=== PATIENT | female | born 1960 | race Caucasian/White ===

== ENCOUNTER → 2017-10-11 | Outpatient (CLI) | payer MEDICARE, OTHER ==
--- NOTE | 2017-10-14 20:14 | MR ---
EXAMINATION TYPE: MR cspine/lspine wo con DATE OF EXAM: 10/11/2017 COMPARISON: 08/13/2015 HISTORY: Neck pain, headaches, BUE radic, LBP, RLE radic TECHNIQUE: Multiplanar, multisequence imaging of the lumbar spine is performed without IV contrast. FINDINGS: CERVICAL SPINE: The cervical spine vertebral bodies maintain normal vertebral body height and alignment. Cervical cor d is of normal signal. Prevertebral soft tissues demonstrate normal thickness. Degenerative endplate changes are seen, bone marrow signal is within normal limits. Visualized portions of the posterior fo ssa are grossly unremarkable. Mild mucosal thickening is seen of the maxillary sinuses incidentally. C2-C3: No significant disc disease, neural foraminal stenosis or spinal canal stenosis. C3-C4: New small posterior disc osteophyte complex is seen. Uncovertebral hypertrophy and left facet arthropathy creating mild left neural foraminal narrowing. Right neural foramen is patent. C4-C5: There is progression of degenerative disc disease at this level with new central small disc he rniation superimposed upon a broad-based disc bulge, uncovertebral hypertrophy and facet arthropathy. This results in mild spinal canal stenosis, moderate left neural foraminal narrowing and mild right neural foraminal narrowing. C5-C6: There is a similar appearing large broad-based disc bulge and disc osteophyte complex in [facility] with uncovertebral hypertrophy and facet arthropathy creating moderate spinal canal stenosis, severe left neural foraminal narrowing and moderate right neural foraminal narrowing. C6-C7: There is a similar posterior central disc herniation without progression from the prior. This creates moderate spinal canal stenosis. Uncovertebral hypertrophy and facet arthropathy creating mild left neural foraminal narrowing. Right neural foramen is patent. C7-T1: Broad-based posterior disc bulge causes minimal anterior mass effect on the thecal sac. IMPRESSION: 1. Similar appearing central disc herniation at C6-C7 in comparison to the prior exam creating modera te spinal canal stenosis. Degenerative changes resulting mild left neural foraminal narrowing at this level. No progression from the prior at this level. 2. New small central disc herniation at C4-C5 superimposed upon degenerative changes resulting in mil d spinal canal stenosis, moderate left neural foraminal narrowing and mild right neural foraminal kiko rowing. 3. Overall progression in degenerative disc disease in comparison to the prior multiple other levels creating variable degrees of neural foraminal stenosis as described above. 4. No new vertebral body height loss or malalignment of the cervical spine. 5. Incidental note of bilateral mild maxillary paranasal sinus disease. LUMBAR SPINE: Again there are 5 lumbar type vertebral bodies. Vertebral body height of the lumbar spine and alignme nt are maintained. Conus medullaris is unremarkable terminating at L1-L2. Multilevel disc desiccation is again noted. T12-L1: Intervertebral disc desiccation is seen with a small broad-based disc bulge. No resultant julianne ral foraminal narrowing the spinal canal stenosis. L1-L2: Mild disc desiccation is noted. No focal disc herniation or significant disc bulge is evident. No spinal canal stenosis or neural foraminal stenosis is present. Minimal with ligamentum flavum buc emmanuel is seen. L2-L3: Mild disc desiccation is present. No focal disc herniation or significant disc bulge is eviden t. No spinal canal stenosis or neural foraminal stenosis is present. Minimal facet arthropathy is see n. L3-L4: Broad-based left eccentric disc bulge creates mild left neural foraminal narrowing. Right neur al foramen and spinal canal remain patent. No focal herniation. Mild facet arthropathy and ligamentum flavum buckling.. L4-L5: New small right paracentral disc herniation superimposed upon a broad-based disc bulge is note d. Mild neural foraminal narrowing are seen as a result of this disc bulge, facet arthropathy and mil d ligament of flavum buckling. L5-S1: Ligamentum flavum buckling and a broad-based disc bulge are seen. No spinal canal stenosis or neural foraminal narrowing. IMPRESSION: 1. New small right paracentral disc herniation at L4-L5 superimposed upon a broad-based disc bulge re sulting in mild bilateral neural foraminal narrowing without spinal canal stenosis. 2. Mild progression in degenerative disc disease of the lumbar spine resulting in mild left neural fo raminal narrowing at L3-L4. 3. No spinal canal stenosis, fracture or malalignment of the lumbar spine.
== END | disposition home or self-care (01) ==
LOC: RADMRIMAIN 17:45
PROVIDERS: ATTEND Psychiatry & Neurology Neurology
DX: M99.73 Connective tissue and disc stenosis of intervertebral foramina of lumbar region (principal); M51.26 Other intervertebral disc displacement, lumbar region; M51.36 Other intervertebral disc degeneration, lumbar region; M48.02 Spinal stenosis, cervical region; M99.71 Connective tissue and disc stenosis of intervertebral foramina of cervical region; M50.221 Other cervical disc displacement at C4-C5 level; M50.321 Other cervical disc degeneration at C4-C5 level; M47.812 Spondylosis without myelopathy or radiculopathy, cervical region
CPT/HCPCS: 72141; 72148

== ENCOUNTER → 2018-06-30 | Outpatient (CLI) | payer MEDICARE, OTHER ==
--- NOTE | 2018-07-01 09:34 | US ---
EXAMINATION TYPE: US pelvic complete DATE OF EXAM: 06/30/2018 COMPARISON: NONE CLINICAL HISTORY: R10.2 PELVIC PAIN. RLQ pain for 1 week, retroverted UT, TECHNIQUE: TA. Transabdominal sonographic images of the pelvis were acquired. Date of LMP: 10+years ago EXAM MEASUREMENTS: Uterus: 4.4 x 2.7 x 2.9 cm Endometrial Stripe: 0.4 cm Right Ovary: not seen Left Ovary: not seen 1. Uterus: Retroverted wnl 2. Endometrium: wnl 3. Right Ovary: not seen due to bowel gas and or atrophy 4. Left Ovary: not seen due to bowel gas and or atrophy 5. Bilateral Adnexa: wnl 6. Posterior cul-de-sac: wnl IMPRESSION: Exam is limited. Follow-up as indicated.
== END ==
LOC: RADUSWWP 15:38
PROVIDERS: ATTEND Obstetrics & Gynecology
DX: R10.2 Pelvic and perineal pain (principal)
CPT/HCPCS: 76856

== ENCOUNTER 2019-07-15 21:30 | Emergency (ER) | payer MEDICARE, OTHER ==
--- NOTE | 2019-07-15 21:52 | ED ---
General Adult HPI - General Chief complaint: Shortness of Breath Stated complaint: poss pneumonia Time Seen by Provider: 07/15/19 21:47 Source: patient Mode of arrival: ambulatory Limitations: no limitations - History of Present Illness Initial comments: Demetra is a 59-year-old female with history of COPD who presents to ER today for evaluation of 8 days of minimally productive cough, chills, body aches and generalized malaise. Patient reports she's had coughing spells that last up to 20 minutes she feels like she can't catch her breath. She states that she stopped using her Symbicort last week because she read that a side effect of Symbicort is pneumonia. Patient reports that due to the persistence of her symptoms she is concerned she may have pneumonia. Patient states she doesn't have any known contacts with anybody with the flu however she is not yet had her flu shot this year. Denies any chest pain palpitations. - Related Data Home Medications Medication Instructions Recorded Confirmed Atorvastatin [Lipitor] 20 mg PO DAILY 07/15/19 07/15/19 Budesonide/Formoterol Fumarate 2 puff INHALATION BID 07/15/19 07/15/19 [Symbicort 160-4.5 Mcg Inhaler] Citalopram Hydrobromide [CeleXA] 20 mg PO DAILY 07/15/19 07/15/19 Cyclobenzaprine [Flexeril] 10 mg PO HS PRN 07/15/19 07/15/19 Previous Rx's Medication Instructions Recorded predniSONE [Deltasone] 40 mg PO DAILY 5 Days #10 tablet 07/16/19 Allergies Allergy/AdvReac Type Severity Reaction Status Date / Time No Known Allergies Allergy Verified 07/15/19 21:59 Review of Systems ROS Statement: Those systems with pertinent positive or pertinent negative responses have been documented in the HPI. ROS Other: All systems not noted in ROS Statement are negative. Past Medical History Past Medical History: COPD, Hyperlipidemia History of Any Multi-Drug Resistant Organisms: None Reported Past Surgical History: No Surgical Hx Reported Past Psychological History: Anxiety, Depression Smoking Status: Current every day smoker Past Alcohol Use History: None Reported Past Drug Use History: None Reported General Exam - General Exam Comments Initial Comments: Physical Exam GENERAL: Patient is well-developed and well-nourished. Patient is nontoxic and well- hydrated and is in no distress. HENT: Normocephalic, Atraumatic. EYES: PERRL, EOMI PULMONARY: Wheezing in all lung paez CARDIOVASCULAR: There is a regular rate and rhythm without any murmurs gallops or rubs. ABDOMEN: Soft and nontender with normal bowel sounds. SKIN: Skin is clear with no lesions or rashes and otherwise unremarkable. : Deferred NEUROLOGIC: Patient is alert and oriented x3. Moving all extremities spontaneously MUSCULOSKELETAL: Normal extremities with adequate strength and full range of motion. No lower extremity swelling or edema. No calf tenderness. PSYCHIATRIC: Normal psychiatric evaluation. Limitations: no limitations Course Vital Signs 07/15/19 07/15/19 07/15/19 21:42 22:28 22:38 Temperature 98.5 F Pulse Rate 88 74 Respiratory 22 Rate Blood Pressure 122/79 133/78 O2 Sat by Pulse 97 100 Oximetry 07/15/19 07/15/19 07/15/19 22:39 22:40 22:41 Temperature Pulse Rate 75 80 Respiratory 20 19 Rate Blood Pressure 133/78 O2 Sat by Pulse 98 Oximetry 07/15/19 07/15/19 07/15/19 22:50 22:51 23:00 Temperature Pulse Rate 86 84 86 Respiratory 26 H 16 27 H Rate Blood Pressure 133/78 133/78 133/78 O2 Sat by Pulse 95 96 95 Oximetry 07/15/19 07/15/19 07/15/19 23:10 23:20 23:30 Temperature Pulse Rate 86 90 92 Respiratory 17 20 28 H Rate Blood Pressure 120/75 120/75 120/75 O2 Sat by Pulse 94 L 93 L 92 L Oximetry 07/15/19 07/15/19 07/16/19 23:40 23:50 00:00 Temperature Pulse Rate 87 87 86 Respiratory 21 17 26 H Rate Blood Pressure 116/71 116/71 116/71 O2 Sat by Pulse 90 L 93 L 94 L Oximetry 07/16/19 07/16/19 07/16/19 00:10 00:20 00:26 Temperature 99.0 F Pulse Rate 82 89 85 Respiratory 17 8 L 16 Rate Blood Pressure 108/66 108/66 107/65 O2 Sat by Pulse 94 L 96 97 Oximetry 07/16/19 07/16/19 07/16/19 00:30 00:40 00:50 Temperature Pulse Rate 78 82 86 Respiratory 20 20 10 L Rate Blood Pressure 107/65 108/67 108/67 O2 Sat by Pulse 97 97 98 Oximetry 07/16/19 07/16/19 07/16/19 01:00 01:10 01:20 Temperature Pulse Rate 86 87 86 Respiratory 20 19 18 Rate Blood Pressure 108/67 96/66 96/66 O2 Sat by Pulse 98 97 95 Oximetry 07/16/19 07/16/19 07/16/19 01:30 01:40 01:50 Temperature Pulse Rate 88 85 84 Respiratory 17 17 10 L Rate Blood Pressure 96/66 99/67 99/67 O2 Sat by Pulse 93 L 94 L 94 L Oximetry 07/16/19 07/16/19 07/16/19 01:57 02:00 02:05 Temperature 98.4 F 98.4 F Pulse Rate 85 82 Respiratory 18 21 16 Rate Blood Pressure 108/72 108/72 O2 Sat by Pulse 94 L 93 L Oximetry EKG Findings - EKG Comments: EKG Findings:: EKG was obtained due to complaint of shortness of breath, EKG obtained at 2236, rate 73 rhythm is sinus there is a normal axis, there are normal intervals, FL 128, QRS 80, QTC 447 and there are no acute ST elevations or depressions no evidence of acute ischemia or infarction. Respiratory artifact is noted. Medical Decision Making - Medical Decision Making The patient was seen and evaluated history was obtained from the patient is sinus at 59-year-old patient with history of COPD with recurrent cigarette smoker presenting with 8 days of nonproductive cough, generalized malaise bodyaches Labs and imaging ordered Chest x-ray with no signs of pneumonia Labs with mild leukocytosis and other significant abnormalities Influenza was negative Patient received a breathing treatment as well as steroids on the emergency department. She was resting comfortably had less coughing. At this time patient was offered admission to hospital for COPD exacerbation versus discharge home. Patient prefer discharge home with oral steroids. Patient will resume her Symbicort. All questions pertaining care were answered return parameters discussed patient discharged home in stable condition. - Lab Data Result diagrams: 07/15/19 22:30 07/15/19 22:30 Lab Results 07/15/19 07/15/19 07/15/19 Range/Units 22:30 22:30 22:30 WBC 12.4 H (3.8-10.6) k/uL RBC 3.78 L (3.80-5.40) m/uL Hgb 11.8 (11.4-16.0) gm/dL Hct 33.8 L (34.0-46.0) % MCV 89.3 (80.0-100.0) fL MCH 31.2 (25.0-35.0) pg MCHC 34.9 (31.0-37.0) g/dL RDW 12.5 (11.5-15.5) % Plt Count 269 (150-450) k/uL Neutrophils % 62 % Lymphocytes % 23 % Monocytes % 7 % Eosinophils % 3 % Basophils % 1 % Neutrophils # 7.8 H (1.3-7.7) k/uL Lymphocytes # 2.9 (1.0-4.8) k/uL Monocytes # 0.9 (0-1.0) k/uL Eosinophils # 0.4 (0-0.7) k/uL Basophils # 0.1 (0-0.2) k/uL Sodium 134 L (137-145) mmol/L Potassium 4.2 (3.5-5.1) mmol/L Chloride 104 (98-107) mmol/L Carbon Dioxide 22 (22-30) mmol/L Anion Gap 8 mmol/L BUN 20 H (7-17) mg/dL Creatinine 0.60 (0.52-1.04) mg/dL Est GFR (CKD-EPI)AfAm >90 (>60 ml/min/1.73 sqM) Est GFR (CKD-EPI)NonAf >90 (>60 ml/min/1.73 sqM) Glucose 110 H (74-99) mg/dL Calcium 8.8 (8.4-10.2) mg/dL Magnesium 1.9 (1.6-2.3) mg/dL Total Bilirubin 0.2 (0.2-1.3) mg/dL AST 37 H (14-36) U/L ALT 32 (9-52) U/L Alkaline Phosphatase 61 (38-126) U/L Total Protein 6.6 (6.3-8.2) g/dL Albumin 3.8 (3.5-5.0) g/dL Influenza Type A RNA Not Detected (Not Detectd) Influenza Type B (PCR) Not Detected (Not Detectd) Disposition Clinical Impression: COPD (chronic obstructive pulmonary disease) Disposition: HOME SELF-CARE Condition: Stable Instructions (If sedation given, give patient instructions): COPD (Chronic Obstructive Pulmonary Disease) (DC) Prescriptions: predniSONE [Deltasone] 40 mg PO DAILY 5 Days #10 tablet Is patient prescribed a controlled substance at d/c from ED?: No Referrals: Pilar Orona MD [Primary Care Provider] - 1-2 days
[2019-07-15] MEDS ORDERED: SODIUM CHLORIDE 0.9% 500 ML 500 ML IV STA (22:07)
[2019-07-15] MEDS ORDERED: IPRATROPIUM-ALBUTEROL 3 ML NEB INHALATION STA (22:11)
[2019-07-15] MEDS ORDERED: methylPREDNISolone SOD SUCCI 125 MG/2 ML VIAL IV STA (22:11)
--- NOTE | 2019-07-15 22:50 | XR ---
EXAMINATION TYPE: XR chest 2V DATE OF EXAM: 07/15/2019 COMPARISON: NONE HISTORY: Difficulty breathing TECHNIQUE: Frontal and lateral views of the chest are obtained. FINDINGS: Heart and mediastinum are normal. Lungs are clear. Diaphragm is normal. Bony thorax appear s normal. IMPRESSION: Normal chest.
[2019-07-15 22:51] LABS: Basophils # (A) 0.1 k/uL (0-0.2); Basophils % (A) 1 %; Eosinophils # (A) 0.4 k/uL (0-0.7); Eosinophils % (A) 3 %; HCT 33.8 % (34.0-46.0); HGB 11.8 gm/dL (11.4-16.0); Lymphocytes # (A) 2.9 k/uL (1.0-4.8); Lymphocytes % (A) 23 %; MCH 31.2 pg (25.0-35.0); MCHC 34.9 g/dL (31.0-37.0); MCV 89.3 fL (80.0-100.0); Monocytes # (A) 0.9 k/uL (0-1.0); Monocytes % (A) 7 %; Neutrophils # (A) 7.8 k/uL (1.3-7.7); Neutrophils % (A) 62 %; Platelet Count 269 k/uL (150-450); RBC 3.78 m/uL (3.80-5.40); RDW 12.5 % (11.5-15.5); WBC 12.4 k/uL (3.8-10.6)
[2019-07-15 22:57] LABS: ALT 32 U/L (9-52); AST 37 U/L (14-36); African American GFR (CKD) >90 (>60 ml/min/1.73 sqM); Albumin 3.8 g/dL (3.5-5.0); Alkaline Phosphatase 61 U/L (38-126); Anion Gap 8 mmol/L; Blood Urea Nitrogen 20 mg/dL (7-17); Calcium 8.8 mg/dL (8.4-10.2); Carbon Dioxide 22 mmol/L (22-30); Chloride 104 mmol/L (98-107); Glucose 110 mg/dL (74-99); Magnesium 1.9 mg/dL (1.6-2.3); Potassium 4.2 mmol/L (3.5-5.1); Sodium 134 mmol/L (137-145); Total Bilirubin 0.2 mg/dL (0.2-1.3); Total Protein 6.6 g/dL (6.3-8.2)
[2019-07-16 02:00] VITALS: BP 108/72; TEMP 98.4
[2019-07-16 02:09] VITALS: PULSE 82; RESP 16
== END 2019-07-16 02:10 | disposition home or self-care (01) ==
LOC: EC 21:30
DX: J44.9 Chronic obstructive pulmonary disease, unspecified (principal); R53.81 Other malaise; D72.829 Elevated white blood cell count, unspecified; E78.5 Hyperlipidemia, unspecified; F32.9 Major depressive disorder, single episode, unspecified; F17.210 Nicotine dependence, cigarettes, uncomplicated; Z79.51 Long term (current) use of inhaled steroids; Z79.899 Other long term (current) drug therapy
CPT/HCPCS: 36415; 94640; 93005; 80053; 83735; 85025; 87502; 71046; 99285; 96374; J2930

== ENCOUNTER → 2020-08-04 | Outpatient (CLI) | payer MEDICARE, OTHER ==
--- NOTE | 2020-08-04 07:54 | US ---
EXAMINATION TYPE: US abdomen complete DATE OF EXAM: 08/04/2020 COMPARISON: NONE CLINICAL HISTORY: R10.11 abd pain. Patient complains of bloating x 1 month. EXAM MEASUREMENTS: Liver Length: 13.7 cm Gallbladder Wall: 0.2 cm CBD: 0.7 cm Spleen: 8.6 cm Right Kidney: 9.2 x 6.0 x 3.1cm Left Kidney: 9.4 x 4.8 x 5.4 cm Pancreas: oval hypoechoic mass seen in head of pancreas and size = 1.3 x 1.3 x 0.7cm. Liver: wnl Gallbladder: wnl Evidence for sonographic Anders's sign: no CBD: wnl Spleen: wnl Right Kidney: No hydronephrosis or masses seen Left Kidney: No hydronephrosis or masses seen Upper IVC: wnl Abd Aorta: size is wnl, appearance is mildly ectatic with intimal wall thickening noted mid and dist ally. There is 1.2 cm hypoechoic oval avascular lesion anterior pancreatic head. Follow-up advised. No duct al dilatation or obstruction currently. The visualized liver is homogenous without mass or ductal dilatation. The intrahepatic portion of th e IVC and visualized abdominal aorta are within normal limits. There is no evidence of shadowing mob ile cholelithiasis. Common bile duct is minimally dilated. The spleen is unremarkable. Kidneys are symmetric and free of hydronephrosis. No renal lesions are seen on images saved. IMPRESSION: No acute findings are evident. There is 1.2 cm lesion in pancreas, solid mass or neoplasm cannot be excluded. Nonurgent pancreatic protocol follow-up CT or MRI advised to further evaluate.
== END | disposition home or self-care (01) ==
LOC: RADUSWWP 06:50
PROVIDERS: ATTEND Internal Medicine
DX: K86.9 Disease of pancreas, unspecified (principal)
CPT/HCPCS: 76700

== ENCOUNTER → 2020-08-09 | Outpatient (CLI) | payer MEDICARE, OTHER ==
--- NOTE | 2020-08-09 10:32 | CT ---
EXAMINATION TYPE: CT abdomen w con DATE OF EXAM: 08/09/2020 COMPARISON: Ultrasound abdomen 08/04/2020 HISTORY: Upper Abdominal pain with distension CT DLP: 363 mGycm Automated exposure control for dose reduction was used. TECHNIQUE: Helical acquisition of images was performed from the lung bases through the top of iliac crest to include entire abdomen. CONTRAST: Performed without Oral Contrast and with IV Contrast, patient injected with 100 mL of Isovue 370. FINDINGS: LUNG BASES: No significant abnormality is appreciated. LIVER/GB: No significant abnormality is appreciated. Liver shows no mass. Gallbladder is normal. PANCREAS: At the level of the head of the pancreas there is a focus just slightly hypodense which lik montserrat corresponds to the ultrasound finding which appears to be extrinsic to the pancreatic head, sagit jennie image #50, axial image #65 measuring approximately 1.7 x 2 x 1.1 cm. The tissue is present food and beverage director ior to the stomach and may be contiguous with liver. SPLEEN: No significant abnormality is seen. ADRENALS: No significant abnormality is seen. KIDNEYS: No significant abnormality is seen. BOWEL: No significant abnormality is seen. LYMPH NODES: No significant abnormality is appreciated. OSSEOUS STRUCTURES: No significant abnormality is seen. FREE AIR: No Free Air visible ASCITES: None visible. RETROPERITONEAL ADENOPATHY: No Retroperitoneal Adenopathy visible. OTHER: IMPRESSION: INDETERMINATE FOCUS AT THE LEVEL OF THE HEAD OF THE PANCREAS OF QUESTIONABLE CLINICAL SIGNIFICANCE MA Y BE RELATED TO A PORTION OF LIVER OR REPRESENT NODE. FOLLOW-UP COULD BE PERFORMED TO ASSESS FOR STAB ILITY OR ALTERNATIVELY PANCREATIC PROTOCOL, MRI COULD BE PERFORMED FOR ADDITIONAL EVALUATION.
== END | disposition home or self-care (01) ==
LOC: RADCTMAIN 07:25
PROVIDERS: ATTEND Internal Medicine
DX: K86.9 Disease of pancreas, unspecified (principal)
CPT/HCPCS: 74160; Q9967

== ENCOUNTER → 2020-09-07 | Outpatient (CLI) | payer MEDICARE, OTHER ==
--- NOTE | 2020-09-12 08:27 | MM ---
Reason for exam: screening (asymptomatic). Last mammogram was performed 4 years and 9 months ago. History: Patient is postmenopausal. Cyst aspiration of both breasts. Physical Findings: A clinical breast exam by your physician is recommended on an annual basis and results should be correlated with mammographic findings. MG 3D Screening Mammo W/Cad Bilateral CC and MLO view(s) were taken. Prior study comparison: December 19, 2015, bilateral MG screening mammo w CAD. November 19, 2013, CAD bilateral diagnostic mammogram. The breast tissue is heterogeneously dense. This may lower the sensitivity of mammography. There is chronic nodularity bilaterally. No significant changes when compared with prior studies. ASSESSMENT: Benign, BI-RAD 2 RECOMMENDATION: Routine screening mammogram of both breasts in 1 year.
== END | disposition home or self-care (01) ==
LOC: RADMAMWWP 13:13
PROVIDERS: ATTEND Internal Medicine
DX: Z12.31 Encounter for screening mammogram for malignant neoplasm of breast (principal)
CPT/HCPCS: 77063; 77067

== ENCOUNTER → 2020-09-15 | Outpatient (CLI) | payer MEDICARE, OTHER ==
--- NOTE | 2020-09-15 13:12 | MR ---
MR pancreas with and without contrast HISTORY: R 14, disease of pancreas Multiple planar multisequence and postcontrast images of the pancreas on 6 cc [address] abdomen 08/09/2020, ultrasound dated 08/04/2020 The previously identified focus Scroggin ultrasound and CT is noted at the level of the head of pancr eas anteriorly, signal characteristics are similar to that of liver. There is some flow related artif act suspected on image #25 of series 701 at this level. No discrete mass. No abnormal enhancement. No retroperitoneal adenopathy or ascites. Liver shows no mass. Lung bases are clear. Aorta shows normal caliber. Abdominal organs are otherwise unremarkable. IMPRESSION: Findings may be related to liver, no pathologic mass is suspected. Some flow related etelvina fact suspected as described. Follow-up could be performed to assess for stability.
== END | disposition home or self-care (01) ==
LOC: RADMRIMAIN 09:03
PROVIDERS: ATTEND Internal Medicine
DX: R14.0 Abdominal distension (gaseous) (principal)
CPT/HCPCS: 74183; A9585

== ENCOUNTER → 2023-06-26 | Outpatient (CLI) | payer MEDICARE, OTHER ==
--- NOTE | 2023-06-26 15:13 | XR ---
EXAMINATION TYPE: XR chest 2V DATE OF EXAM: 06/26/2023 1:40 PM CLINICAL INDICATION:Female, 62 years old with history of [id number] ASTHMA COUGH; [facility] COMPARISON: Chest radiographs from 07/15/2019 TECHNIQUE: XR chest 2V Frontal and lateral views of the chest. FINDINGS: Lungs/Pleura: Prominent interstitial lung markings are seen scattered throughout the lungs with maira ening of the diaphragm and increased lucency of the lung apices. No evidence of focal consolidation, pneumothorax or pleural effusion. Pulmonary vascularity: Unremarkable. Heart/mediastinum: Cardiomediastinal silhouette is unremarkable. Musculoskeletal: No acute osseous pathology. IMPRESSION: 1. No acute cardiopulmonary disease process. 2. COPD changes.
== END | disposition home or self-care (01) ==
LOC: RADXRYALE 13:29
PROVIDERS: ATTEND Internal Medicine
DX: J44.9 Chronic obstructive pulmonary disease, unspecified (principal)
CPT/HCPCS: 71046